=== PATIENT | male | born 1935 | race Caucasian/White ===

== ENCOUNTER 2017-10-23 11:23 | Emergency (ER) | payer OTHER ==
[~2017-10-23] VITALS: Ht 177.8 cm; Wt 108.9 kg
[~2017-10-23 11:23] MED LIST: ALD25 PO; AMA1 PO; AMLODIPINE BESY10 M1 PO; ANTIVERT/2525 MG PO; BACTROBAN2% TP; CARD1 PO; CIP500 PO; CLINDAMYCIN HC300 MG PO; CORE25 PO; DIG125 PO; FLO4 PO; GLU500 PO; HIBICLENS118 ML TOP; LAC PO; LASIX20 MG PO; LEV250 PO; LEVAQUIN750 MG PO; LEVEMIR SQ; LIPI10 PO; LISINOPRIL2.5 MG PO; MECLICOT12.5 MG PO; MEV20 PO; NOVOLIN 70/3010 ML SC; OMEGA 31000 MG PO; PRADAXA PO; PRI20 PO; PRILOSEC20 MG PO; SERTRALINE HYDR50 M1 PO; TERAZOSIN HCL2 MG PO; ZES20 PO; ZOL50 PO; ZYL100 PO
[2017-10-23 11:28] VITALS: Ht 177.8 cm; Wt 108.9 kg
[2017-10-23 15:29] VITALS: BP 149/83
== END 2017-10-23 15:29 | disposition home or self-care (01) ==
LOC: ED 11:23
DX: S01.81XA Laceration without foreign body of other part of head, initial encounter (principal); I10 Essential (primary) hypertension; E11.9 Type 2 diabetes mellitus without complications; E78.00 Pure hypercholesterolemia, unspecified; W18.39XA Other fall on same level, initial encounter; Y93.89 Activity, other specified; Y92.89 Other specified places as the place of occurrence of the external cause; Y99.8 Other external cause status
CPT/HCPCS: 90714; J1885; J2001; Q0092

== ENCOUNTER 2018-06-14 15:10 | Inpatient (IN) | payer OTHER ==
[~2018-06-14] VITALS: Ht 172.7 cm; Wt 110.0 kg
[2018-06-14 16:35] LABS: BASOPHIL % 0.8 % (0-2); PLATELET COUNT 181 x10^3mcL (130-400)
[2018-06-14 16:36] LABS: RED CELL DISTRIBUTION WIDTH 15.7 % (11.5-14.5)
[2018-06-14 16:43] LABS: CALCIUM 8.4 mg/dL (8.5-10.1); CARBON DIOXIDE 20.8 mmol/L (21-32); CHLORIDE SERUM 110 mmol/L (98-107); CREATININE SERUM 1.2 mg/dL (0.7-1.3); GLUCOSE SERUM 119 mg/dL (74-106); POTASSIUM SERUM 4.4 mmol/L (3.5-5.1); SODIUM SERUM 142 mmol/L (136-145)
[2018-06-14] MEDS ORDERED: METFORMIN HCL500 MG PO (16:45)
[2018-06-14] MEDS ORDERED: NOVOLIN 70/3010 ML SC (16:46)
[2018-06-14] MEDS ORDERED: VITB12I SL (16:48)
[2018-06-14] MEDS ORDERED: BETAMETHASONE D (16:49)
[2018-06-14 16:56] LABS: ALBUMIN 3.2 g/dL (3.4-5.0); ALKALINE PHOSPHATASE 106 U/L (46-116); ALT/SGPT 30 U/L (16-63); AST/SGOT 24 U/L (15-37); BILIRUBIN TOTAL 0.87 mg/dL (0.20-1.00); T4(THYROXINE) 5.2 ug/dL (4.7-13.3); TOTAL PROTEIN, SERUM 7.2 g/dL (6.4-8.2)
[2018-06-14] MEDS ORDERED: HUMALOG KW100 UNIT/1 SQ (16:57)
[2018-06-14] MEDS ORDERED: LANTUS SOLOS100 U/M1 SQ (16:58)
[2018-06-14] MEDS ORDERED: FARXIGA5 MG PO (16:58)
[2018-06-14 16:59] LABS: CK-MB 4.4 ng/mL (0-3.6)
[2018-06-14] MEDS ORDERED: CARVEDILOL25 M1 PO (16:59)
[2018-06-14] MEDS ORDERED: LIPI10 PO (17:00)
[2018-06-14] MEDS ORDERED: OMEPRAZOLE40 M1 PO (17:01)
[2018-06-14] MEDS ORDERED: TERAZOSIN HCL2 MG PO (17:02)
[2018-06-14] MEDS ORDERED: LISINOPRIL2.5 MG PO (17:02)
[2018-06-14] MEDS ORDERED: SPIRONOLACTONE25 MG PO (17:03)
[2018-06-14] MEDS ORDERED: SERTRALINE50 M1 PO (17:03)
[2018-06-14] MEDS ORDERED: FUROSEMIDE40 MG PO (17:04)
[2018-06-14] MEDS ORDERED: NORVASC10 MG PO (17:04)
[2018-06-14] MEDS ORDERED: POTASSIUM CHLO20 ME1 PO (17:05)
[2018-06-14 19:43] VITALS: BP 145/104
[2018-06-14 19:55] LABS: AMPHETAMINE QUAL UR NONE DETECTED (See below)
[2018-06-14 21:07] VITALS: BP 145/104
[2018-06-14 23:40] VITALS: BP 145/104
[2018-06-15 01:31] LABS: microscopic required? YES; urine erythrocyte NEGATIVE (NEGATIVE)
[2018-06-15 05:32] VITALS: BP 135/101
[2018-06-15 08:42] VITALS: BP 130/95
[2018-06-15 13:39] VITALS: BP 145/82
[2018-06-15 17:17] VITALS: BP 112/71
[2018-06-15 20:39] VITALS: BP 102/70
[2018-06-16 05:31] VITALS: BP 107/73
[2018-06-16 06:51] LABS: BASOPHIL % 0.6 % (0-2); PLATELET COUNT 183 x10^3mcL (130-400)
[2018-06-16 06:54] LABS: RED CELL DISTRIBUTION WIDTH 15.4 % (11.5-14.5)
[2018-06-16 07:02] LABS: ALKALINE PHOSPHATASE 90 U/L (46-116); ALT/SGPT 21 U/L (16-63); AST/SGOT 13 U/L (15-37); CALCIUM 8.3 mg/dL (8.5-10.1); CARBON DIOXIDE 22.8 mmol/L (21-32); CHLORIDE SERUM 104 mmol/L (98-107); GLUCOSE SERUM 135 mg/dL (74-106); MAGNESIUM 1.9 mg/dL (1.8-2.4); PHOSPHOROUS 4.8 mg/dL (2.5-4.9); POTASSIUM SERUM 3.2 mmol/L (3.5-5.1); SODIUM SERUM 140 mmol/L (136-145); TOTAL PROTEIN, SERUM 6.6 g/dL (6.4-8.2)
[2018-06-16 07:03] LABS: ALBUMIN 2.9 g/dL (3.4-5.0)
[2018-06-16 09:42] VITALS: BP 120/59
[2018-06-16 12:50] VITALS: BP 100/57
[2018-06-16 15:05] LABS: CALCIUM 8.2 mg/dL (8.5-10.1); CARBON DIOXIDE 25.3 mmol/L (21-32); CHLORIDE SERUM 105 mmol/L (98-107); CREATININE SERUM 1.3 mg/dL (0.7-1.3); GLUCOSE SERUM 203 mg/dL (74-106); POTASSIUM SERUM 4.1 mmol/L (3.5-5.1); SODIUM SERUM 140 mmol/L (136-145)
[2018-06-16 15:20] VITALS: BP 100/57
[2018-06-16 15:26] VITALS: BP 100/57
[2018-06-17 09:53] VITALS: Ht 172.7 cm; Wt 110.0 kg
== END 2018-06-16 17:47 | disposition home or self-care (01) | DRG 308 ==
LOC: ED 15:10 → DU 18:04
PROVIDERS: Emergency Medicine; Internal Medicine; Internal Medicine Pulmonary Disease
DX: I48.92 Unspecified atrial flutter (principal); I50.23 Acute on chronic systolic (congestive) heart failure; E11.9 Type 2 diabetes mellitus without complications; I87.8 Other specified disorders of veins; Z79.4 Long term (current) use of insulin; Z68.36 Body mass index [BMI] 36.0-36.9, adult; Z87.891 Personal history of nicotine dependence; Z95.810 Presence of automatic (implantable) cardiac defibrillator
CPT/HCPCS: 36600; 82962; 83880; J0696; J1160; J1815; J1940; J3490; Q0092

== ENCOUNTER 2018-08-30 13:20 | Inpatient (IN) | payer OTHER ==
[~2018-08-30] VITALS: Ht 172.7 cm; Wt 102.2 kg
[~2018-08-30 13:20] MED LIST changes: +BETAMETHASONE D; +CARVEDILOL25 M1 PO; +FARXIGA5 MG PO; +FUROSEMIDE40 MG PO; +HUMALOG KW100 UNIT/1 SQ; +LANTUS SOLOS100 U/M1 SQ; +METFORMIN HCL500 MG PO; +NORVASC10 MG PO; +OMEPRAZOLE40 M1 PO; +POTASSIUM CHLO20 ME1 PO; +SERTRALINE50 M1 PO; +SPIRONOLACTONE25 MG PO; +VITB12I SL
[2018-08-30 13:24] VITALS: Ht 172.7 cm; Wt 102.2 kg
[2018-08-30 16:54] LABS: BASOPHIL % 0.8 % (0-2); PLATELET COUNT 191 x10^3mcL (130-400)
[2018-08-30 16:56] LABS: RED CELL DISTRIBUTION WIDTH 17.4 % (11.5-14.5)
[2018-08-30 17:03] LABS: CALCIUM 8.8 mg/dL (8.5-10.1); CARBON DIOXIDE 19.9 mmol/L (21-32); CHLORIDE SERUM 100 mmol/L (98-107); CREATININE SERUM 1.3 mg/dL (0.7-1.3); GLUCOSE SERUM 258 mg/dL (74-106); SODIUM SERUM 133 mmol/L (136-145)
[2018-08-30 17:09] LABS: ALBUMIN 3.4 g/dL (3.4-5.0); ALKALINE PHOSPHATASE 94 U/L (46-116); ALT/SGPT 11 U/L (16-63); AST/SGOT 18 U/L (15-37); BILIRUBIN TOTAL 0.7 mg/dL (0.20-1.00); TOTAL PROTEIN, SERUM 7.4 g/dL (6.4-8.2)
[2018-08-30 17:30] LABS: POTASSIUM SERUM 4.8 mmol/L (3.5-5.1)
[2018-08-30 17:51] LABS: ovalocyte/elliptocyte 1+; rbc morphology (normal/abnorm) ABNORMAL (NORMAL)
[2018-08-30 22:20] VITALS: BP 123/66
[2018-08-31 05:46] VITALS: BP 126/77
[2018-08-31 06:36] LABS: BASOPHIL % 0.4 % (0-2); PLATELET COUNT 204 x10^3mcL (130-400)
[2018-08-31 06:58] LABS: RED CELL DISTRIBUTION WIDTH 17.6 % (11.5-14.5)
[2018-08-31 07:19] LABS: ALKALINE PHOSPHATASE 87 U/L (46-116); ALT/SGPT 13 U/L (16-63); AST/SGOT 9 U/L (15-37); CALCIUM 8.4 mg/dL (8.5-10.1); CARBON DIOXIDE 21.9 mmol/L (21-32); CHLORIDE SERUM 102 mmol/L (98-107); CREATININE SERUM 1.3 mg/dL (0.7-1.3); GLUCOSE SERUM 191 mg/dL (74-106); POTASSIUM SERUM 4.3 mmol/L (3.5-5.1); SODIUM SERUM 136 mmol/L (136-145); TOTAL PROTEIN, SERUM 6.8 g/dL (6.4-8.2)
[2018-08-31 07:29] LABS: ALBUMIN 3.2 g/dL (3.4-5.0)
[2018-08-31 09:37] VITALS: BP 124/65
[2018-08-31] MEDS ORDERED: FUROSEMIDE40 MG PO (11:05)
[2018-08-31] MEDS ORDERED: OZEMPIC0.25 MG/0. SC (11:09)
[2018-08-31] MEDS ORDERED: EPZICOM1 TAB (11:09)
[2018-08-31] MEDS ORDERED: ELIQUIS2.5 MG PO (11:12)
[2018-08-31 12:36] VITALS: BP 124/80
[2018-08-31 17:34] VITALS: BP 120/69
[2018-08-31 19:20] VITALS: BP 118/81
[2018-09-01 05:38] VITALS: BP 121/72
[2018-09-01 06:33] LABS: BASOPHIL % 0.5 % (0-2); PLATELET COUNT 233 x10^3mcL (130-400)
[2018-09-01 06:35] LABS: ALBUMIN 3.5 g/dL (3.4-5.0); ALKALINE PHOSPHATASE 90 U/L (46-116); ALT/SGPT 14 U/L (16-63); AST/SGOT 12 U/L (15-37); BILIRUBIN TOTAL 1.01 mg/dL (0.20-1.00); CALCIUM 8.6 mg/dL (8.5-10.1); CARBON DIOXIDE 23.3 mmol/L (21-32); CHLORIDE SERUM 99 mmol/L (98-107); CREATININE SERUM 1.5 mg/dL (0.7-1.3); GLUCOSE SERUM 200 mg/dL (74-106); POTASSIUM SERUM 4.5 mmol/L (3.5-5.1); SODIUM SERUM 134 mmol/L (136-145); TOTAL PROTEIN, SERUM 7.4 g/dL (6.4-8.2)
[2018-09-01 07:14] LABS: RED CELL DISTRIBUTION WIDTH 17.7 % (11.5-14.5)
[2018-09-01 08:51] VITALS: BP 106/53
[2018-09-01 11:53] VITALS: BP 111/66
[2018-09-01 16:51] VITALS: BP 106/65
[2018-09-01 21:30] VITALS: BP 123/69
[2018-09-02 06:07] VITALS: BP 116/71
[2018-09-02 07:20] LABS: CALCIUM 8.6 mg/dL (8.5-10.1); CARBON DIOXIDE 20.2 mmol/L (21-32); CHLORIDE SERUM 98 mmol/L (98-107); CREATININE SERUM 1.6 mg/dL (0.7-1.3); GLUCOSE SERUM 188 mg/dL (74-106); POTASSIUM SERUM 4.4 mmol/L (3.5-5.1); SODIUM SERUM 132 mmol/L (136-145)
[2018-09-02 09:40] VITALS: BP 107/50
[2018-09-02 13:50] VITALS: BP 107/66
[2018-09-02 21:30] VITALS: BP 120/70
[2018-09-03 08:52] VITALS: BP 109/68
[2018-09-03 14:12] VITALS: BP 105/61
[2018-09-03 16:14] VITALS: BP 105/61
== END 2018-09-03 16:42 | disposition home or self-care (01) | DRG 291 ==
LOC: ED 13:20 → DU 21:09
PROVIDERS: Internal Medicine Pulmonary Disease; ADMIT Internal Medicine Pulmonary Disease
DX: I13.0 Hypertensive heart and chronic kidney disease with heart failure and stage 1 through stage 4 chronic kidney disease, or unspecified chronic kidney disease (principal); I50.23 Acute on chronic systolic (congestive) heart failure; I11.0 Hypertensive heart disease with heart failure; I42.9 Cardiomyopathy, unspecified; E11.22 Type 2 diabetes mellitus with diabetic chronic kidney disease; E11.65 Type 2 diabetes mellitus with hyperglycemia; N18.3 Chronic kidney disease, stage 3 (moderate); E78.00 Pure hypercholesterolemia, unspecified; I48.2 Chronic atrial fibrillation; E66.01 Morbid (severe) obesity due to excess calories; Z95.810 Presence of automatic (implantable) cardiac defibrillator; I25.10 Atherosclerotic heart disease of native coronary artery without angina pectoris; Z68.34 Body mass index [BMI] 34.0-34.9, adult; Z79.84 Long term (current) use of oral hypoglycemic drugs
CPT/HCPCS: 82962; 83880; 85378; J1644; J1815; J1940; J2405; Q0092

== ENCOUNTER 2019-03-13 18:38 | Observation (INO) | payer OTHER ==
[~2019-03-13] VITALS: Ht 175.3 cm; Wt 107.2 kg
[~2019-03-13 18:38] MED LIST changes: +ELIQUIS2.5 MG PO; +EPZICOM1 TAB; +OZEMPIC0.25 MG/0. SC
[2019-03-13 19:37] VITALS: Ht 175.3 cm; Wt 107.2 kg
--- NOTE | 2019-03-13 19:37 | NUR ---
PT BIB [facility]. PER PERAMEDIC PT HAS HAD GENERALIZED WEAKNESS X 3 WEEKS WITH NEW SYMPTOM OF BILATERAL LEG SWELLING TODAY. PT DENEIS FEVER, SOB OR RECENT TRAUMA DENIES N/V/D. PER MEDIC PT REFUSED IV LINE. PT HAS HX OF A FIB, DEFIBULATOR, HTN CHF, DM. PT IS SLEEPY YET AROUSABLE AND ORIENTED. PT HAS 4+BITTING EDEMA WITH DUSKY COLOR TO BILATERAL LOWER LEGS. PT DENIES SOB ALTHOUGH APPEARS WINDED UPON TRANSFER TO [facility]. PT 4 TOE NAIL ON RIGHT FOOT IS BLEEDING WITH PARTIAL REMOVAL OF NAIL. PT SKIN IS COOL AND PALE. LUNCH SOUNDS OR WITH MILD CRACLES AT BASES. PT PLACED ON MONITOR, PULSE OX AND EDUCATED ABOUT REASONING FOR IV.
--- NOTE | 2019-03-13 19:44 | NUR ---
DR ROCK NOTIFEED OF VITALS, SEPSIS PROTOCAL INTIATED
--- NOTE | 2019-03-13 19:48 | NUR ---
DR ROCK AT BEDSIDE FOR MSE
--- NOTE | 2019-03-13 19:52 | NUR ---
OK PER DR WEST FOR A HALF GLASS OF WATER TO BE GIVEN.
--- NOTE | 2019-03-13 20:09 | NUR ---
EKG COMPLETED AND LAB AT BEDSIDE
--- NOTE | 2019-03-13 20:20 | NUR ---
PER MD ROCK HOLD LASIX AT THIS TIME.
[2019-03-13 20:26] LABS: BASOPHIL % 0.5 % (0-2); PLATELET COUNT 183 x10^3mcL (130-400)
[2019-03-13 20:28] LABS: RED CELL DISTRIBUTION WIDTH 20.8 % (11.5-14.5)
[2019-03-13] MEDS ORDERED: DEBROX15 M1 AD (20:28)
[2019-03-13] MEDS ORDERED: MECLIZINE HYDRO25 M1 PO (20:28)
[2019-03-13] MEDS ORDERED: AMOXICILLIN500 MG PO (20:28)
[2019-03-13] MEDS ORDERED: ASPIR 8181 MG PO (20:28)
[2019-03-13] MEDS ORDERED: SYMBICORT1 AE3 INH (20:29)
[2019-03-13] MEDS ORDERED: PHARMASSURE1000 MCG PO (20:29)
[2019-03-13] MEDS ORDERED: LIPI10 PO (20:29)
[2019-03-13] MEDS ORDERED: TERAZOSIN HCL2 MG PO (20:30)
[2019-03-13] MEDS ORDERED: KLOR-CON M2020 MEQ PO (20:30)
[2019-03-13] MEDS ORDERED: CORE25 PO (20:30)
[2019-03-13 20:40] LABS: CALCIUM 8.1 mg/dL (8.5-10.1); CHLORIDE SERUM 107 mmol/L (98-107); CREATININE SERUM 1.1 mg/dL (0.7-1.3); GLUCOSE SERUM 167 mg/dL (74-106); POTASSIUM SERUM 3.9 mmol/L (3.5-5.1); SODIUM SERUM 140 mmol/L (136-145); rbc morphology (normal/abnorm) ABNORMAL (NORMAL)
[2019-03-13 20:43] LABS: ovalocyte/elliptocyte 1+; tear drop cell (dacryocyte) 1+
[2019-03-13 20:51] LABS: ALKALINE PHOSPHATASE 72 U/L (46-116); ALT/SGPT 16 U/L (16-63); AST/SGOT 9 U/L (15-37); BILIRUBIN TOTAL 1.2 mg/dL (0.20-1.00); LIPASE 60 IU/L (73-393); T4(THYROXINE) 4.8 ug/dL (4.7-13.3); TOTAL PROTEIN, SERUM 6.2 g/dL (6.4-8.2)
[2019-03-13 20:52] LABS: ALBUMIN 2.9 g/dL (3.4-5.0); AMYLASE 17 U/L (25-115); CHOLESTEROL 57 mg/dL (<200); HDL CHOLESTEROL 28 mg/dL (40-60)
[2019-03-13 22:43] LABS: microscopic required? YES; urine erythrocyte TRACE (NEGATIVE)
[2019-03-13 22:52] LABS: AMPHETAMINE QUAL UR NONE DETECTED (See below)
--- NOTE | 2019-03-13 23:18 | NUR ---
PT PROVIDED WITH PUDDING UPON REQUEST, OK WITH MD ROCK. PT IN UPRIGHT POSITION IN BED. PTS AT BEDSIDE TO ASSIST.
--- NOTE | 2019-03-14 00:25 | NUR ---
REPORT GIVEN TO PIYUSH SWAN TO ASSUME CARE OF PT.
[2019-03-14 01:04] VITALS: BP 98/56
--- NOTE | 2019-03-14 01:26 | NUR ---
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 KEPT IN COMFORT,ORIENTED TO ROOM AND DEVICES. TELE# 14 AFIB WITH PVC'S ON MONITOR, DENIES CHEST DISCOMFORT. IV TO LAC INTACT WITH NS BOLUS INFUSING WELL. WITH ADMISSION ORDERS FROM DR CHRISTOPHER AND CARRIED OUT. PHOTO OF SCAB TO LEFT SECOND TOE, LEFT KNEE AND BILATERAL LEG SWELLING TAKEN. PLACED PATIENT ON AIR MATTRESS. ABDOMEN DISTENDED AND SOFT WITH ACTIVE BOWEL SOUNDS. WILL CONTINUE TO MONITOR. CALL LIGHT WITHIN REACH.
--- NOTE | 2019-03-14 03:58 | NUR ---
APPEARS SLEEPING WITH EYES CLOSED. BREATHING EASY AND NONLABOR, AT BEDSIDE. WILL CONTINUE TO MONITOR.
--- NOTE | 2019-03-14 05:27 | NUR ---
NO SIGNIFICANT CHANGES IN CONDITION NOTED. CHECKED AT INTERVALS FOR NEEDS AND SAFETY. DENIES PAIN AND DISCOMFORT.
[2019-03-14 06:13] VITALS: BP 90/68
--- NOTE | 2019-03-14 07:30 | NUR ---
ALERT AND ORIENTED. WANTING TO GO HOME. DOESNT THINK HE NEEDS TO BE HERE. NO RESP DISTRESS.DENIES ANY PAIN. OBESE WITH GENERALZIED WEAKNESS. ON AIR MATTRESS, WEARING SCD'S. TELE # 14 AFIV W PVC'S. SL TO LEFT AC PATENT WITH DRIED BLOOD AROUND SITE. VSS. CALL LIGHT WITHIN REACH. STRICT I&O'S. URINAL AT BEDSIDE. DRY SMALL ABRAISION TO RIGHT KNEE NATE. LEFT FOOT 2ND TOENAIL PARTIALLY TORN OFF GUIDE.
[2019-03-14 08:11] VITALS: BP 111/81
[2019-03-14 08:37] LABS: CALCIUM 8.4 mg/dL (8.5-10.1); CARBON DIOXIDE 19.5 mmol/L (21-32); CHLORIDE SERUM 106 mmol/L (98-107); CREATININE SERUM 1.3 mg/dL (0.7-1.3); GLUCOSE SERUM 170 mg/dL (74-106); MAGNESIUM 1.9 mg/dL (1.8-2.4); POTASSIUM SERUM 3.8 mmol/L (3.5-5.1); SODIUM SERUM 141 mmol/L (136-145)
--- NOTE | 2019-03-14 10:33 | NUR ---
spoke with RN regarding pt not tolerating regular texture of food, pt desires to be changed to a chopped texture since he does not have teeth, diet order has been downgraded to finely chopped texture and dietetic intern is following up with pt to help fill out menu.
[2019-03-14 12:16] LABS: BASOPHIL % 0.6 % (0-2); PLATELET COUNT 172 x10^3mcL (130-400)
[2019-03-14 12:20] LABS: rbc morphology (normal/abnorm) ABNORMAL (NORMAL)
[2019-03-14 12:55] VITALS: BP 96/52
[2019-03-14 14:36] VITALS: BP 96/52
--- NOTE | 2019-03-14 16:32 | NUR ---
DC'D TO HOME. PT PULLED OUT IV. TELE RETURNED TO TELE STATION. ALL DC INSTRUCTIONS REVIEWED WITH AND SIGNED BY PTS SIGNIFICANT OTHER CLAUDIA AT PTS REQUEST. NEW ORDER FOR HOME HEALTH P.T. NO ORDER FOR P.T. T.C. TO TO OBTAIN ORDER FOR P.T. EVAL. NO CALL BACK. P.T. GONE FOR THE DAY. PT DID NOT WANT TO WAIT UNTIL TOMORROW TO GET P.T. EVAL. PT SAYS HE CAN GET HOME HEALTH P.T. THROUGH DR. LARES PTS PCP.
== END 2019-03-14 16:42 | disposition home health service (06) | DRG 293 ==
LOC: ED 18:38 → DU 23:40
PROVIDERS: Emergency Medicine; ADMIT Internal Medicine Pulmonary Disease
DX: I11.0 Hypertensive heart disease with heart failure (principal); I50.43 Acute on chronic combined systolic (congestive) and diastolic (congestive) heart failure; I48.91 Unspecified atrial fibrillation; E11.9 Type 2 diabetes mellitus without complications; D64.9 Anemia, unspecified; Z95.810 Presence of automatic (implantable) cardiac defibrillator
CPT/HCPCS: 82962; 83880; G0378; G0480; J1940; J1956; J7030; Q0092

== ENCOUNTER 2019-07-14 15:06 | Inpatient (IN) | payer OTHER ==
[~2019-07-14] VITALS: Ht 175.3 cm; Wt 89.6 kg
[~2019-07-14 15:06] MED LIST changes: +AMOXICILLIN500 MG PO; +ASPIR 8181 MG PO; +DEBROX15 M1 AD; +KLOR-CON M2020 MEQ PO; +MECLIZINE HYDRO25 M1 PO; +PHARMASSURE1000 MCG PO; +SYMBICORT1 AE3 INH
[2019-07-14 16:26] LABS: BASOPHIL % 0.6 % (0-2); PLATELET COUNT 121 x10^3mcL (130-400); RED CELL DISTRIBUTION WIDTH 20.1 % (11.5-14.5)
[2019-07-14 16:38] LABS: CALCIUM 7.9 mg/dL (8.5-10.1); CARBON DIOXIDE 17.7 mmol/L (21-32); CHLORIDE SERUM 105 mmol/L (98-107); CREATININE SERUM 1.6 mg/dL (0.7-1.3); GLUCOSE SERUM 166 mg/dL (74-106); POTASSIUM SERUM 5.4 mmol/L (3.5-5.1); SODIUM SERUM 137 mmol/L (136-145)
[2019-07-14 16:42] LABS: acanthocyte (spur cell) 2+; rbc morphology (normal/abnorm) ABNORMAL (NORMAL)
[2019-07-14 16:43] LABS: ovalocyte/elliptocyte 2+
[2019-07-14 16:52] LABS: ALBUMIN 3.2 g/dL (3.4-5.0); ALKALINE PHOSPHATASE 115 U/L (46-116); ALT/SGPT 82 U/L (16-63); AST/SGOT 24 U/L (15-37); BILIRUBIN TOTAL 1.23 mg/dL (0.20-1.00); CHOLESTEROL 69 mg/dL (<200); HDL CHOLESTEROL 28 mg/dL (40-60); PHOSPHOROUS 4.5 mg/dL (2.5-4.9); TOTAL PROTEIN, SERUM 6.8 g/dL (6.4-8.2)
[2019-07-14 21:33] VITALS: BP 86/59
[2019-07-14 21:45] VITALS: Ht 175.3 cm; Wt 89.6 kg
[2019-07-15 06:31] VITALS: BP 97/61
[2019-07-15 07:02] LABS: CALCIUM 7.8 mg/dL (8.5-10.1); CARBON DIOXIDE 17.3 mmol/L (21-32); CHLORIDE SERUM 107 mmol/L (98-107); CREATININE SERUM 1.7 mg/dL (0.7-1.3); GLUCOSE SERUM 145 mg/dL (74-106); SODIUM SERUM 137 mmol/L (136-145)
[2019-07-15 07:41] LABS: POTASSIUM SERUM 5.8 mmol/L (3.5-5.1)
[2019-07-15 08:40] LABS: UA SPECIFIC GRAVITY 1.025 (1.005-1.035); microscopic required? YES; urine erythrocyte NEGATIVE (NEGATIVE)
[2019-07-15 08:57] VITALS: BP 104/69
[2019-07-15 10:38] VITALS: BP 104/69
[2019-07-15 16:24] VITALS: BP 94/70
[2019-07-15 21:02] VITALS: BP 119/69
[2019-07-16 05:42] VITALS: BP 94/64
[2019-07-16 06:28] LABS: ALKALINE PHOSPHATASE 117 U/L (46-116); ALT/SGPT 151 U/L (16-63); AST/SGOT 117 U/L (15-37); BILIRUBIN TOTAL 0.9 mg/dL (0.20-1.00); CALCIUM 8.2 mg/dL (8.5-10.1); CARBON DIOXIDE 15.7 mmol/L (21-32); CHLORIDE SERUM 105 mmol/L (98-107); GLUCOSE SERUM 126 mg/dL (74-106); MAGNESIUM 2.1 mg/dL (1.8-2.4); SODIUM SERUM 136 mmol/L (136-145); TOTAL PROTEIN, SERUM 6.3 g/dL (6.4-8.2)
[2019-07-16 06:41] LABS: BASOPHIL % 0.2 % (0-2); PLATELET COUNT 164 x10^3mcL (130-400)
[2019-07-16 06:47] LABS: ALBUMIN 2.8 g/dL (3.4-5.0); RED CELL DISTRIBUTION WIDTH 20.3 % (11.5-14.5)
[2019-07-16 06:49] LABS: POTASSIUM SERUM 6.6 mmol/L (3.5-5.1)
[2019-07-16 07:46] LABS: rbc morphology (normal/abnorm) NORMAL (NORMAL)
[2019-07-16 08:45] VITALS: BP 105/68
[2019-07-16 17:15] VITALS: BP 83/58
[2019-07-16 18:23] VITALS: BP 90/59
[2019-07-16 20:19] VITALS: BP 90/54
[2019-07-17] VITALS (7 sets, daily range): BP systolic 95–147; BP diastolic 54–71
[2019-07-17 07:00] LABS: BASOPHIL % 0.2 % (0-2); PLATELET COUNT 149 x10^3mcL (130-400)
[2019-07-17 07:24] LABS: ALKALINE PHOSPHATASE 107 U/L (46-116); ALT/SGPT 158 U/L (16-63); AST/SGOT 107 U/L (15-37); CALCIUM 7.8 mg/dL (8.5-10.1); CARBON DIOXIDE 17.5 mmol/L (21-32); CHLORIDE SERUM 103 mmol/L (98-107); CREATININE SERUM 1.9 mg/dL (0.7-1.3); GLUCOSE SERUM 133 mg/dL (74-106); POTASSIUM SERUM 5.4 mmol/L (3.5-5.1); SODIUM SERUM 135 mmol/L (136-145)
[2019-07-17 07:49] LABS: ALBUMIN 2.9 g/dL (3.4-5.0)
[2019-07-17 07:56] LABS: RED CELL DISTRIBUTION WIDTH 20.3 % (11.5-14.5)
[2019-07-18 05:21] VITALS: BP 99/71
[2019-07-18 06:39] LABS: BASOPHIL % 0.3 % (0-2); PLATELET COUNT 146 x10^3mcL (130-400)
[2019-07-18 07:17] LABS: ALKALINE PHOSPHATASE 91 U/L (46-116); ALT/SGPT 185 U/L (16-63); AST/SGOT 138 U/L (15-37); BILIRUBIN TOTAL 1.3 mg/dL (0.20-1.00); CALCIUM 7.7 mg/dL (8.5-10.1); CARBON DIOXIDE 14.4 mmol/L (21-32); CHLORIDE SERUM 102 mmol/L (98-107); GLUCOSE SERUM 108 mg/dL (74-106); MAGNESIUM 2.1 mg/dL (1.8-2.4); POTASSIUM SERUM 4.5 mmol/L (3.5-5.1); SODIUM SERUM 135 mmol/L (136-145)
[2019-07-18 07:18] LABS: ALBUMIN 3.3 g/dL (3.4-5.0); TOTAL PROTEIN, SERUM 6.1 g/dL (6.4-8.2)
[2019-07-18 07:20] LABS: RED CELL DISTRIBUTION WIDTH 20.1 % (11.5-14.5)
[2019-07-18 09:35] VITALS: BP 100/62
[2019-07-18 13:45] VITALS: BP 100/62
== END 2019-07-18 16:39 | DRG 640 ==
LOC: ED 15:06 → MU 19:37
PROVIDERS: Emergency Medicine; Internal Medicine Pulmonary Disease; ADMIT Internal Medicine Pulmonary Disease
DX: E87.5 Hyperkalemia (principal); N17.0 Acute kidney failure with tubular necrosis; E44.0 Moderate protein-calorie malnutrition; E11.65 Type 2 diabetes mellitus with hyperglycemia; R26.81 Unsteadiness on feet; J44.9 Chronic obstructive pulmonary disease, unspecified; Z68.29 Body mass index [BMI] 29.0-29.9, adult; Z79.84 Long term (current) use of oral hypoglycemic drugs; Z95.810 Presence of automatic (implantable) cardiac defibrillator; I11.0 Hypertensive heart disease with heart failure; E86.0 Dehydration
CPT/HCPCS: 82962; 83880; 97116-GP; 97530-GP; G0378; J0610; J1650; J1940; J7030; J7040; J7620; J7626; P9047; Q0092